=== PATIENT | male | born 1975 | race Caucasian/White ===

== ENCOUNTER 2018-08-30 11:22 | Day surgery (SDC) | payer BC ==
[~2018-08-30 11:22] MED LIST: ACETAMINOPHEN 1,000 MG/100 ML BTL IV ONE; CEFAZOLIN 2 Gram 2 GM/50 ML BAG IVPB ONE; MORPHINE SULFATE 4 MG/ML VIAL ONE
[2018-08-30] MEDS ORDERED: PROPOFOL 10 MG/ML VIAL IV ONE (11:23)
[2018-08-30] MEDS ORDERED: FENTANYL PF 100MCG/2ML VIAL IV ONE (11:23)
[2018-08-30] MEDS ORDERED: MIDAZOLAM HCL 2MG/2ML VIAL IV ONE (11:23)
[2018-08-30] MEDS ORDERED: LIDOCAINE 2% MDV (20MG/ML) 20ML VIAL IV ONE (11:23)
[2018-08-30] MEDS ORDERED: ONDANSETRON HCL IV 4 MG/2 ML VIAL IVP ONE (11:23)
[2018-08-30] MEDS ORDERED: METHYLPREDNISOLONE 40MG/VIAL IM ONE (11:23)
[2018-08-30] MEDS ORDERED: BUPIVACAINE 0.5% W/EPI MPF 30 ML VIAL IVP ONE (11:23)
--- NOTE | 2018-09-01 09:40 | Operative Note ---
DATE OF SURGERY: 08/30/2018 Surgeon: Cristian Hammond MD PREOPERATIVE DIAGNOSIS: Internal derangement right knee. 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 OPERATION: Right knee arthroscopy with chondroplasty of the patella. Anesthesia: General. PREPARATION: Chloraprep. INDIVIDUAL CONSIDERATIONS: None. PROCEDURE: The patient was taken to the operating room and placed supine on the operating table. He had a successful induction with general anesthetic. His right lower extremity was prepped and draped in the usual fashion. The patient had a superior lateral inflow cannula placed. The skin was infiltrated with 0.5% Marcaine with epinephrine prior. The knee was drained of a small clear effusion and then inflated with normal saline. An inferior medial and an inferior lateral portal were made in a similar fashion. The arthroscope was introduced through the inferior lateral portal up into the pouch. The patellofemoral joint showed very large grade 3 changes, changes primarily at the inferior half of the patella, not significant synovitis. This was smoothed off with a shaver. He had grade 3 changes in the notch with fiber cartilage, but not much to debride. In the medial compartment, the medial compartment structures were well seen and found to be normal. The medial meniscus was intact. In the notch the cruciates were normal. The lateral compartment structures were normal, except for soft change tibial plateau, but nothing to debride. The meniscus and femoral condyle were intact. No loose bodies were seen in either gutter. The knee was then irrigated out with saline to remove floating debris. The portals were closed with adolfo and 20 mL of 0.5% Marcaine with epinephrine along with 4 mg of morphine and 40 mg of Depo-Medrol were injected into the knee and a sterile bulky compressive dressing was applied. The patient tolerated the procedures well. The needle and sponge counts were correct. Estimated blood loss was minimal. He was taken back to recovery in good condition. There were no complications. KULDIP
== END 2018-08-30 15:15 | disposition home or self-care (01) ==
LOC: SUR 11:22
PROVIDERS: ATTEND Orthopaedic Surgery
DX: M22.41 Chondromalacia patellae, right knee (principal); I10 Essential (primary) hypertension; G47.33 Obstructive sleep apnea (adult) (pediatric); Z68.43 Body mass index [BMI] 50.0-59.9, adult; F12.90 Cannabis use, unspecified, uncomplicated
CPT/HCPCS: 29877; 01400; J2405; J3010; J0690; J2270; J1030